=== PATIENT | female | born 1985 ===

== ENCOUNTER 2022-08-14 05:59 | Day surgery (SDC) | payer OTHER ==
[2022-08-14] MEDS ORDERED: NEXIUM 24HR20 M1 PO (08:26)
== END 2022-08-14 10:25 | disposition home or self-care (01) ==
LOC: AMB-ENDOS 05:59
PROVIDERS: ATTEND Surgery
DX: K29.60 Other gastritis without bleeding (principal); K44.9 Diaphragmatic hernia without obstruction or gangrene; R10.13 Epigastric pain; Z20.822 Contact with and (suspected) exposure to COVID-19; E66.09 Other obesity due to excess calories